=== PATIENT | female | born 1985 | race Caucasian/White ===

== ENCOUNTER 2022-01-21 10:47 | Outpatient (RCR) | payer BC, SELFPAY ==
[2022-01-23] MEDS: RHO(D) IMMUNE GLOBULIN 300 MCG/2 ML SYRINGE IM (11:46)
== END 2022-01-21 10:48 | disposition home or self-care (01) ==
LOC: ANHLAB 10:47
PROVIDERS: PCP Obstetrics & Gynecology Gynecology; Visit Provider Obstetrics & Gynecology Gynecology
DX: O26.851 Spotting complicating pregnancy, first trimester (principal); O26.21 Pregnancy care for patient with recurrent pregnancy loss, first trimester; O20.0 Threatened abortion; Z3A.00 Weeks of gestation of pregnancy not specified
CPT/HCPCS: 36415; 84702; 85461; 90384; 96372; J2790

== ENCOUNTER 2022-01-23 11:08 | Outpatient (CLI) | payer BC, SELFPAY | END 2022-01-23 11:09 | disposition home or self-care (01) | PROVIDERS: PCP Obstetrics & Gynecology Gynecology; Visit Provider Obstetrics & Gynecology Gynecology | DX: O26.21 Pregnancy care for patient with recurrent pregnancy loss, first trimester (principal); O20.0 Threatened abortion; Z3A.00 Weeks of gestation of pregnancy not specified | CPT/HCPCS: 36415; 84702 ==

== ENCOUNTER 2022-02-12 13:08 | Outpatient (RCR) | payer BC, SELFPAY ==
[2022-01-29 12:52] LABS: Beta HCG Quantitative 109.03 mIU/ML
[2022-02-12 14:09] LABS: Beta HCG Quantitative 2.92 mIU/ML
== END 2022-04-29 23:59 | disposition home or self-care (01) ==
LOC: ANHLAB 13:08
PROVIDERS: PCP Obstetrics & Gynecology Gynecology; Visit Provider Obstetrics & Gynecology Gynecology
DX: O26.859 Spotting complicating pregnancy, unspecified trimester (principal); O26.21 Pregnancy care for patient with recurrent pregnancy loss, first trimester; O20.0 Threatened abortion; Z3A.00 Weeks of gestation of pregnancy not specified
CPT/HCPCS: 36415; 84702

== ENCOUNTER 2022-05-26 08:21 | Outpatient (RCR) | payer BC, SELFPAY ==
[2022-05-21] MEDS: RHO(D) IMMUNE GLOBULIN 300 MCG/2 ML SYRINGE IM (14:10)
== END 2022-08-17 23:59 | disposition home or self-care (01) ==
LOC: ANHLAB 08:21
PROVIDERS: PCP Obstetrics & Gynecology Gynecology; Visit Provider Obstetrics & Gynecology Gynecology
DX: Z29.13 Encounter for prophylactic Rho(D) immune globulin (principal); O36.0110 Maternal care for anti-D [Rh] antibodies, first trimester, not applicable or unspecified; O02.1 Missed abortion; Z3A.00 Weeks of gestation of pregnancy not specified
CPT/HCPCS: 36415; 84702; 85461; 86850; 86880; 86900; 86901; 90384; 96372; J2790

== ENCOUNTER 2022-07-05 09:23 | Outpatient (RCR) | payer BC, SELFPAY ==
[2022-06-02 15:22] LABS: Beta HCG Quantitative 55.11 mIU/ML
[2022-06-09 11:17] LABS: Beta HCG Quantitative 34.41 mIU/ML
[2022-06-16 10:05] LABS: Beta HCG Quantitative 27.47 mIU/ML
[2022-07-05 10:53] LABS: Beta HCG Quantitative 3.53 mIU/ML
== END 2022-08-31 23:59 | disposition home or self-care (01) ==
LOC: ANHLAB 09:23
PROVIDERS: PCP Obstetrics & Gynecology Gynecology; Visit Provider Obstetrics & Gynecology Gynecology
DX: O20.0 Threatened abortion (principal); Z3A.00 Weeks of gestation of pregnancy not specified
CPT/HCPCS: 36415; 84702